=== PATIENT | female | born 1970 | race Caucasian/White ===

== ENCOUNTER → 2018-05-15 14:20 | Outpatient (CLI) | payer MEDICAID, SELFPAY ==
[2018-05-15 12:58] VITALS: BMI 38.1
== END ==
PROVIDERS: Family Provider Family Medicine; PCP Family Medicine; Visit Provider Nurse Practitioner Family
DX: J02.9 Acute pharyngitis, unspecified (principal)
CPT/HCPCS: 87081

== ENCOUNTER → 2018-05-25 14:12 | Outpatient (CLI) | payer MEDICAID, SELFPAY ==
[2018-05-25 11:57] VITALS: BMI 38.1
[2018-05-25 14:45] LABS: Bacteria 0 SEEN /hpf (None Seen); Mucous, Urine 0 SEEN /hpf (<or=2+); Red Blood Cells-Urine 0 SEEN /hpf (0-5); Squamous Epithelial Cells - UA 0 SEEN /hpf (5-10); White Blood Cells 0 SEEN /hpf (0-5)
[2018-05-25 15:02] LABS: Color, Urine Yellow (Yellow); Glucose, Dipstick Normal (Normal); Ketone-Dipstick Negative (Negative); Leukocyte Esterase-Dipstick Negative /ul (Negative); Nitrite-Dipstick Negative (Negative); Occult Blood-Urine Negative /ul (Negative); Protein-Dipstick Negative (Negative); Urine Bilirubin Dipstick Negative (Negative); Urine Clarity Clear (Clear); Urine Urobilinogen Normal (Normal)
--- OUTSIDE RECORDS SUMMARY | 2018-07-27 19:52 | XMS RPT_ITS ---
:1970 Author Organization [place] Support Name Relationship Address Phone HUGO MANNING Unavailable [address] + [place] [address] EDINSON MARTY Unavailable Unavailable + [place] [address] [facility] Unavailable [address] + [place] [address] HGUO MANNING Unavailable [address] + [place] [address] EDINSON MARTY Unavailable . + [place] [address] [facility] Unavailable [address] + [place] [address] HUGO MANNING Unavailable [address] + [place] [address] EDINSON MARTY Unavailable . + [place] [address] [facility] Unavailable [address] + [place] [address] HUGO MANNING Unavailable [address] + [place] [address] EDINSON, MARTY Unavailable . + [place] [address] [facility] Unavailable [address] + [place] [address] Hugo Manning Unavailable Unavailable + Hugo Manning Unavailable Unavailable + EDINSON HUGO Unavailable [address] + [place] [address] EDINSON, MARTY Unavailable . + [place] [address] [facility] Unavailable [address] + [place] [address] HUGO MANNING Unavailable [address] + [place] [address] MARTY MANNING Unavailable . + [place] [address] [facility] Unavailable [address] + [place] [address] Care Team Providers Name Role Phone Zoran Gonzalez Attending Unavailable PROVIDER, UNKNOWN Referring Unavailable [facility], [facility] Unavailable PROVIDER, UNKNOWN Attending Unavailable PROVIDER, UNKNOWN Referring Unavailable [facility], [facility] Unavailable Rosales, Hugo ORTHOPEDIC RN-C Attending Unavailable Ranney, Christopher Referring Unavailable Rosales, Hugo ORTHOPEDIC RN-C Attending Unavailable [place], [facility] Unavailable Juice, Ari Attending Unavailable Ranney, Christopher Referring Unavailable Juice, Ari Attending Unavailable Juice, Ari Referring Unavailable [place], [facility] Unavailable Prudencio Medina Attending Unavailable [facility], [facility] Referring Unavailable [place], [facility] Unavailable Rosales, Hugo ORTHOPEDIC RN-C Attending Unavailable [place], [facility] Referring Unavailable [place], [facility] Unavailable PROBLEMS PROBLEMS DATE TYPE CONDITION / CODE ATTENDING STATUS SOURCE 05/25/2018 Unknown M54.5 - Low back Ari Bose Active [facility] / Community M54.5(ICD-10) Hospital Repository 05/15/2018 Unknown J02.9 - Acute Rosales, Hugo Active [facility] pharyngitis, ORTHOPEDIC RN-C Community unspecified / Hospital J02.9(ICD-10) Repository 04/15/2018 Admitting Generalized anxiety Unknown Active [facility] disorder / System F41.1(ICD-10) Repository 04/15/2018 Admitting Encounter for issue Unknown Active [facility] Diagnosis of other medical System certificate / Repository Z02.79(ICD-10) 04/12/2018 Admitting Anxiety disorder, Lisa, Active [facility] Diagnosis unspecified / [facility] F41.9(ICD-10) Repository 04/12/2018 Admitting Problems in Lisa, Active [facility] Diagnosis relationship with [facility] spouse or partner / Repository Z63.0(ICD-10) 04/12/2018 Admitting Major depressive Lisa, Active [facility] Diagnosis disorder, single [facility] episode, Repository unspecified / F32.9(ICD-10) 04/12/2018 Admitting Personal history of Lisa, Active [facility] dis of the nervous [facility] sys and sense Repository organs / Z86.69(ICD-10) 04/12/2018 Admitting Nicotine Lisa, [facility], [facility] cigarettes, Repository uncomplicated / F17.210(ICD-10) 09/12/2017 Unknown K04.7 - Periapical Rosales, Hugo Active [facility] abscess without ORTHOPEDIC RN-C Community sinus / Hospital K04.7(ICD-10) Repository PROCEDURES PROCEDURES No Procedure Records FoundRESULTS RESULTS URINALYSIS, COMPLETE Collected: 05/25/2018 Status: F Source: [facility] 2:44 PM [facility] REPOSITORY Order Comment: How was Urine Obtained? CLEAN CATCH TYPE CODE TESTS RESULT OUT OF RANGE REFERENCE UNITS LAB L400.3000 Yellow COLOR Normal Yellow LAB L400.3050 Clear Normal CLARITY Clear LAB L400.3200 Normal mg/dl Normal GLUCOSE, UR Normal LAB L400.3300 Negative mg/dL Normal BILIRUBIN URINE Negative LAB L400.3400 Negative mg/dl Normal KETONE UR Negative LAB L400.3465 1.002-1.030 Normal SP.GR. DIPSTX 1.020 LAB L400.3550 5.0 - 8.0 pH UR Normal 5.0 LAB L400.3600 Negative mg/dl PROT Normal DIPSTX Negative LAB L400.3700 Normal mg/dl Normal UROBILI Normal LAB L400.3750 Negative Normal NITRITE UR Negative LAB L400.3780 Negative /ul Normal OCCULT BLOOD-UR Negative LAB L400.3800 Negative /ul LEUK Normal ESTERASE Negative LAB L400.4050 0-5 /hpf WBC 0 Normal SEEN LAB L400.4100 0-5 /hpf 0 Normal RBC-UA SEEN LAB L400.4150 5-10 /hpf SQUAM 0 Normal EPI SEEN LAB L400.4300 None Seen /hpf 0 Normal BACTERIA SEEN LAB L400.4350 <or=2+ /hpf 0 Normal MUCUS, URINE SEEN Performed By: #### L400.0001 #### [facility] [address] [place], [address] Observed: 05/25/2018 Status: F Source: [place] CULTURE, URINE 2:44 PM [facility] REPOSITORY Urine Culture Below infection level. ORGANISM 1: Mixed Gram Positive Organisms [place] Count <1000 MIX CULTURE Mixed contaminants. Submit a new specimen if indicated. Performed By: #### M100.0650 #### [facility] [address] [place], [address] URGENT CARE VISIT Observed: 05/25/2018 Status: F Source: [facility] REPORT 2:16 PM [facility] REPOSITORY [facility] [address] [place] [address] [address] [place] [address] OFFICE VISIT Date of Service: 05/25/18 MR#: [id number] Acct: [id number] Name: SAMANTA MANNING Rep #: [id number] : 1970 Provider: Ari KANG Age/Sex: 48/F Location: [facility] Status: Signed Intake Vital Signs05/25/18 Body Mass Index (BMI) 38.1 05/25/18 Height 5 ft 5 in Intake Visit Reasons: UTI, BACK PAIN/ COULD BE A STRAIN Allergies No Known Allergies Allergy (Verified 05/25/18 11:57) Medications loratadine-pseudoephedrine ER 10 mg-240 mg tablet,extended [id number] 1 tab PO QDAY PRN #30 tab 09/03/17 [Rx Confirmed 05/25/18] albuterol sulfate HFA 90 mcg/actuation aerosol inhaler 1 puff INHALATION Q6H PRN #8 g 05/15/18 [Rx Confirmed 05/25/18] cyclobenzaprine 5 mg tablet 5 mg PO TID PRN #30 tab 05/25/18 [Rx Confirmed 05/25/18] PFSH Medical History Arthritis (Acute) Back pain (Acute) Migraines (Acute) Social History Smoking Status: Current every day smoker alcohol intake: never HPI HPI Details: SAMANTA MANNING, is a 48 F who presents to the office today for complaint of low back pain. Patient is concerned she may have a UTI however states that the low back pain started after doing quite a shoveling 3 days ago. Patient states that the pain is made worse with bending or stooping. She denies any loss of bowel or bladder control. She has had no numbness or tingling in her extremities. She denies any previous back injuries or issues with back pain. She denies dysuria, hematuria or urinary urgency/frequency. No fever, chills, sweats. No nausea, vomiting or diarrhea. No other associated symptoms or alleviating/aggravating factors. ROS Const Constitutional: No chills, fever(s), fatigue or abnormal sleep pattern Resp Respiratory: No shortness of breath or chest congestion Cardio Cardiology: No chest pain at rest, chest pain with exertion or shortness of breath Skin Skin: No wounds or lesions Neuro Neurology: No behavioral changes or confusion Psych Psychiatric: No behavioral changes, No confusion, No abnormal sleep pattern Endo Endocrine: No fatigue Exam Const General: cooperative, healthy appearing Resp Effort AND Inspection: normal respiratory effort Auscultation: Bilateral: Clear to Auscultation Cardio Palpation: normal PMI Rate: regular rate Rhythm: regular rhythm Musc Musculoskeletal: Yes joint tenderness Cervical Spine: normal cervical lordosis and cervical ROM normal Thoracic/Lumbar Spine: straight leg raise negative bilaterally, thoraco-lumbar ROM normal Other: Multiple muscle spasms palpated bilaterally in the L4-5 region. No pain to palpation over the spine Skin General: no rashes or lesions noted Neuro General: alert, CN's II-XI intact bilaterally Gait: normal gait Motor: muscle tone normal throughout, strength 5/5 throughout Sensory Exam: no sensory deficits noted Psych Appearance: grossly normal Mental Status: mental status grossly normal Results [facility] Office Urine Color YELLOW Last Edit by Yany Stanley on 05/25/18 12:04 Office Urine Clarity Clear Last Edit by Yany Stanley on 05/25/18 12:04 Assessment AND Plan Problems 1. Strain of lumbar region, initial encounter S39.012A Status Acute Plan Cyclobenzaprine as prescribed today. Patient also advised to rest and use a heating pad for the next several days. Advised to use ibuprofen or Tylenol unless contraindicated as needed for pain. Patient advised of potential red flags and when appropriate to report to the ED. Patient verbalized understanding and agreement with all the above. Orders Orders: Medications New: Coding Level of Care Code Off vis,est,level 3 Diagnoses Strain of lumbar region, initial encounter S39.012A Encounter type: initial encounter 05/25/18 1416 <Electronically signed by Ari KANG> Date Ari Carrillo Signature: Date (if applicable) CC: URGENT CARE VISIT Observed: 05/15/2018 Status: F Source: [facility] REPORT 2:12 PM [facility] REPOSITORY [facility] [address] [place] [address] [address] [place] [address] OFFICE VISIT Date of Service: 05/15/18 MR#: [id number] Acct: [id number] Name: SAMANTA MANNING Rep #: [id number] : 1970 Provider: Hugo Rosales NP Age/Sex: 48/F Location: [facility] Status: Signed Intake Vital Signs05/15/18 Height 5 ft 5 in 05/15/18 Weight: 229 lb 05/15/18 Body Mass Index (BMI) 38.1 05/15/18 Blood Pressure 124/78 H Intake Visit Reasons: SORE THROAT Chief Complaint: SORE THROAT Forming Department End Finder Required: No Accompanied by: DAUGHTER Is patient in pain?: No Allergies No Known Allergies Allergy (Verified 05/15/18 12:59) Medications loratadine-pseudoephedrine ER 10 mg-240 mg tablet,extended [id number] 1 tab PO QDAY PRN #30 tab 09/03/17 [Rx Confirmed 09/12/17] albuterol sulfate HFA 90 mcg/actuation aerosol inhaler 1 puff INHALATION Q6H PRN #8 g 05/15/18 [Rx Confirmed 05/15/18] prednisone 20 mg tablet 40 mg PO QDAY #10 tab 05/15/18 [Rx Confirmed 05/15/18] PFSH Medical History Arthritis (Acute) Back pain (Acute) Migraines (Acute) Social History Smoking Status: Current every day smoker alcohol intake: never HPI HPI Chief Complaint: SORE THROAT Details: SAMANTA MANNING, is a 48 F who presents to the office today for an acute visit for sore throat. Patient has a past medical history as listed above. Patient presents in office today with sore throat. Patient states this started to get worse the last 3 days and complains of pain when swallowing on both sides of throat. Patient states has not taken anything for the pain or symptoms. Patient was seen on Apr 29 at PCP office for sinus pressure and cough. She was prescribed a ZPack which alleviated some sinus pressure but she states she still has a lingering dry cough as well. She is having postnasal drainage today along with the cough and a frontal headache. Patient denies any other aggravating or alleviating factors. Kieran's daughter was seen in office last week with positive strep culture as well. The patient otherwise denies any fever, chills, nausea, vomiting, shortness of breath, chest pain or pressure, palpitations, orthopnea, lower extremity edema, syncope or presyncopal episodes. ROS Const Constitutional: Positive for headache(s); no fever(s), chills, weakness, change in appetite, sleep problems, fatigue, malaise or frequent falls ENT ENT: Positive for sinus pressure, sore throat and headache(s); no abnormal hearing, ear pain, ear pressure or dizziness/vertigo Resp Respiratory: Positive for cough; no wheezing or shortness of breath Cardio Cardiology: No chest pain at rest, chest pain with exertion, shortness of breath, dyspnea on exertion, lightheadedness, irregular heart rhythm, fast heart rate, palpitations, orthopnea or generalized swelling Gastro GI: No abdominal pain, change in bowel habits, constipation, diarrhea, vomiting or nausea/dyspepsia Skin Skin: No change in skin color, wounds, rash or itching Neuro Neurology: Positive for headache(s); no weakness, frequent falls or abnormal hearing Psych Psychiatric: No change in appetite Endo Endocrine: No fatigue Aller/Imm Allergy/Immunologic: No wheezing or itchy eyes Exam Const General: cooperative, comfortable, no acute distress Nutritional Appearance: average body habitus, well nourished Orientation: alert, oriented x3 Limitations: mental status not altered [facility] Head: normal to inspection Ears: hearing grossly normal bilaterally, TM's normal bilaterally Nose: external nose normal Face and sinus: normal facial exam, sinus tenderness Mouth: oral mucosae normal Throat: posterior oropharynx abnormal erythema Neck Neck: no lymphadenopathy, normal visual inspection Chest Chest palpation AND inspection: normal inspection of the chest Resp Effort AND Inspection: normal respiratory effort, able to speak in complete sentences, normal respiratory pattern, symmetric chest movement, no audible wheezes, no cough Auscultation: Bilateral: Clear to Auscultation Cardio Palpation: normal PMI Rate: regular rate Heart Sounds: S1 normal, S2 normal, normal S1 and S2, no click, no gallops, no murmurs, no rubs Skin General: no rashes or lesions noted, elasticity normal, turgor normal Lesions: no lesions Rashes: no rashes Neuro General: alert, awake, oriented x3, CN's II-XI intact bilaterally Speech: speech normal Gait: normal gait Motor: muscle tone normal throughout Results BMSRAPIDSTREAK Office Rapid Strep A Negative Last Edit by Klairssa Kuo on 05/15/18 13:04 Assessment AND Plan Problems 1. Acute pharyngitis, unspecified etiology J02.9 2. COPD exacerbation J44.1 Plan Based on patient's presenting symptoms history and assessment diagnosis of acute pharyngitis due to rapid strep negative. Will plan on sending strep and strep culture and following up pending results. Supportive therapy instructed for acute pharyngitis including Tylenol OTC for pain, increasing fluids and rest. Diagnosis of COPD exacerbation given to due to lingering cough not resolved with antibiotics since April 29 and the fact that a chest x-ray was done in 2016 that showed probable COPD and the patient's [id number] smoking. Treatment today will be prednisone burst therapy and albuterol for symptom management. Patient instructed on all medications and verbalizes under standing. Plan will be for patient to follow-up with primary care provider if any new or worsening symptoms. She does note that she has a routine follow-up next week with her PCP. Dragon disc Orders Orders: Medications New: albuterol sulfate HFA 90 mcg/actuation (Vento1 puff Inhalation Q6H PRN 8 grams 0RF wheezi brandy HFA) ng, shortness of breath, cough Coding Level of Care Code Off vis,est,level 3 Diagnoses Acute pharyngitis, unspecified etiology J02.9 Pharyngitis/tonsillitis etiology: unspecified etiology COPD exacerbation J44.1 05/15/18 1412 <Electronically signed by Hugo HENNESSY> Date Hugo Rosales NP-Rosaura Carrillo Signature: Date (if applicable) CC: Observed: 05/15/2018 Status: F Source: [facility] CULTURE, R/O STREP A 12:00 AM [facility] REPOSITORY [facility]ORIE Culture No Group A Beta Streptococcus isolated. * This cultures intended use is to screen for Beta Streptococcus A only. All other pathogens and potential pathogens will not be screened for or reported. If a complete workup of all potential pathogens is indicated an order for a routine throat culture is required. Performed By: #### M100.010 #### [facility] [address] [place], [address] INTERNAL MEDICINE Observed: 09/12/2017 Status: F Source: [facility] OFFICE VISIT 8:30 AM [facility] REPOSITORY [facility] [address] [place] [address] [place] [address] OFFICE VISIT Date of Service: 09/12/17 MR#: [id number] Acct: [id number] Name: EDINSONSAMANTA J Rep #: [id number] : 1970 Provider: Hugo Rosales NP Age/Sex: 47/F Location: [facility] Status: Signed Intake Vital Signs09/12/17 Height 5 ft 5 in Intake Visit Reasons: absessed tooth Chief Complaint: tooth abcess Is patient in pain?: No Allergies No Known Allergies Allergy (Verified 09/12/17 08:12) Medications loratadine-pseudoephedrine ER 10 mg-240 mg tablet,extended [id number] 1 tab PO QDAY PRN #30 tab 09/03/17 [Rx Confirmed 09/12/17] amoxicillin 875 mg-potassium clavulanate 125 mg tablet 1 tab PO BID #14 tab 09/12/17 [Rx Confirmed 09/12/17] PFSH Medical History Arthritis (Acute) Back pain (Acute) Migraines (Acute) Social History Smoking Status: Current every day smoker alcohol intake: never HPI HPI Chief Complaint: tooth abcess Details: SAMANTA MANNING, is a 47 F who presents to the office today for an acute complaint of possible tooth abscess. She has a past medical history of recurrent sinus infection. The patient states she has been recently getting over a cold and that she was flossing her teeth last night and noted a small tender pocket of yellow fluid underneath her bottom teeth. She states it is slightly tender and that this occurred on the same tooth where she previously had a root canal done. She denies any systemic signs of infection. She does state she will be seeing the dentist Thursday but to be seen sooner than that. She denies any allergies or recent antibiotic use. She denies any other aggravating or relieving factors. The patient otherwise denies any fever, chills, nausea, vomiting, shortness of breath, chest pain or pressure, palpitations, orthopnea, lower extremity edema, syncope or presyncopal episodes. ROS Const Constitutional: No fever(s), chills, weakness, change in appetite, sleep problems, fatigue, malaise or frequent falls Eyes Eyes: No blurry vision, change in vision, double vision or discharge ENT ENT: Positive for other (Tooth abscess see HPI); no abnormal hearing, ear pain, ear pressure or dizziness/vertigo Resp Respiratory: No cough, wheezing or shortness of breath Cardio Cardiology: No chest pain at rest, chest pain with exertion, shortness of breath, dyspnea on exertion, lightheadedness, irregular heart rhythm, fast heart rate, palpitations, orthopnea or generalized swelling Gastro GI: No abdominal pain, change in bowel habits, constipation, diarrhea, vomiting or nausea/dyspepsia Musc Musculoskeletal: No joint pain, back pain, limited range of motion, joint swelling, muscle weakness, tingling or numbness Skin Skin: No change in skin color, wounds, rash or itching Neuro Neurology: No weakness, frequent falls, abnormal hearing, tingling, numbness, unsteady gait/balance, dizziness, loss of vision or memory loss Psych Psychiatric: No change in appetite, No memory loss, No anxiety, No depression, No Thoughts of harming yourself/Others Endo Endocrine: Positive for other (Tooth abscess see HPI); no fatigue, increased thirst/drinking, increased urination, increased hunger or heat intolerance Aller/Imm Allergy/Immunologic: No wheezing, itchy eyes or seasonal allergy symptoms Aris/Lymp Hematologic/Lymphatic: No easy bleeding, easy bruising or enlarged lymph nodes Exam Const General: cooperative, comfortable, no acute distress Nutritional Appearance: average body habitus, well nourished Orientation: alert, oriented x3 Limitations: mental status not altered HENMT Head: normal to inspection Ears: hearing grossly normal bilaterally Nose: external nose normal Face and sinus: normal facial exam Mouth: oral mucosae normal Teeth and gingiva: abnormal tooth or associated gingiva lower left central incisor: tender and other (Small yellow fluid-filled pocket needs lower central incisor), poor dentition Throat: posterior oropharynx normal Neck Neck: no lymphadenopathy noted Resp Effort AND Inspection: normal respiratory effort, able to speak in complete sentences, normal respiratory pattern, symmetric chest movement, no audible wheezes, no cough Auscultation: Bilateral: Clear to Auscultation Cardio Palpation: normal PMI Rate: regular rate Heart Sounds: S1 normal, S2 normal, normal S1 and S2, no click, no gallops, no murmurs, no rubs Musc Musculoskeletal: No muscle weakness Psych Appearance: grossly normal Mental Status: mental status grossly normal Affect: normal affect Attitude: cooperative Thought Process: normal Assessment AND Plan 1. Tooth abscess K04.7 Plan Based on physical exam, the patient does have a small tooth abscess on her lower central incisor. Will treat empirically with Augmentin twice daily 7 days and instructed to follow-up with her dentist on Thursday. Discussed red flag symptoms that require urgent medical attention. Discussed supportive symptoms such as taking xlqa-mml-ysgbwfy analgesics for pain as well. Patient to follow-up with dentist on Thursday or seek medical attention sooner if any red flag symptoms occur. Arlene disclaimer. Plan Detail Other Medications New: Coding Level of Care Code Off vis,est,level 3 Diagnoses Tooth abscess K04.7 09/12/17 0830 <Electronically signed by Hugo HENNESSY> Date Hugo HENNESSY Cosigner Signature: Date (if applicable) CC: URGENT CARE VISIT Observed: 09/03/2017 Status: F Source: [facility] REPORT 5:30 PM [facility] [address] [place] [address] [address] [place] [address] OFFICE VISIT Date of Service: 09/03/17 MR#: [id number] Acct: [id number] Name: SAMANTA MANNING Rep #: [id number] : 1970 Provider: Prudencio KANG Age/Sex: 47/F Location: [facility] Status: Signed Intake Vital Signs09/03/17 Height 5 ft 5 in 09/03/17 Weight: 229 lb 09/03/17 Body Mass Index (BMI) 38.1 09/03/17 Blood Pressure 132/86 Intake Visit Reasons: COUGH,DRAINAGE Chief Complaint: Nasal congestion Forming Department End Finder Required: No Is patient in pain?: No Allergies No Known Allergies Allergy (Verified 09/03/17 16:46) Medications loratadine-pseudoephedrine ER 10 mg-240 mg tablet,extended [id number] 1 tab PO QDAY PRN #30 tab 09/03/17 [Rx Confirmed 09/03/17] PFSH Medical History Arthritis (Acute) Back pain (Acute) Migraines (Acute) Social History Smoking Status: Current every day smoker alcohol intake: never HPI HPI Chief Complaint: Nasal congestion Details: SAMANTA MANNING, is a 47 F who presents to the office today for initial evaluation 2 day history of sneezing, rhinorrhea, occasional chills. Patient notes no complaints of fever, sweats, rash, chest pain/shortness of breath, or cough. She admits to being a tobacco smoker. She notes no other members in her household with similar signs or symptoms. She has tried no botf-wyg-mpakznt products to assist with her symptoms. She notes no other associated symptoms and no other alleviating or aggravating factors. ROS Const Constitutional: Positive for chills; no excessive sweating, fever(s), night sweats, body ache or headache(s) Eyes Eyes: No change in vision ENT ENT: Positive for post nasal drip, sinus pressure and nasal congestion; no ear pain, ear discharge, ear pressure, hearing loss, sore throat or headache(s) Resp Respiratory: No cough, chest congestion or shortness of breath Cardio Cardiology: No excessive sweating, chest pain at rest, chest pain with exertion, shortness of breath, dyspnea on exertion, irregular heart rhythm, generalized swelling or leg pain with exertion Gastro GI: No abdominal pain, change in stool character or change in bowel habits Musc Musculoskeletal: No joint pain, back pain, limited range of motion, tingling or numbness Skin Skin: No rash Neuro Neurology: No tingling, numbness, headache(s) or dizziness Endo Endocrine: No excessive sweating Exam Const General: cooperative, healthy appearing, no acute distress, comfortable Nutritional Appearance: average body habitus Orientation: alert, awake, oriented x3 HENMT Head: normal to inspection Ears: hearing grossly normal bilaterally, external ears normal, TM's normal bilaterally, EAC's normal Nose: external nose normal, nares normal, septum normal, nasal discharge clear Face and sinus: normal facial exam, sinuses nontender, face symmetric Mouth: oral mucosae normal, lip normal, tongue normal, oropharynx normal Teeth and gingiva: gingiva normal, dentition normal Throat: uvula midline, tonsils normal, posterior oropharynx normal, no postnasal drainage Eyes General: appearance normal, both eyes and all related structures Neck Neck: normal visual inspection, full ROM, no lymphadenopathy, no meningeal signs, supple Neck mass: No Thyroid: thyroid normal Lymphatic: no lymphadenopathy noted Chest Chest palpation AND inspection: normal inspection of the chest Resp Effort AND Inspection: normal respiratory effort, able to speak in complete sentences, symmetric chest movement, no cough Auscultation: Bilateral: Clear to Auscultation Cardio Palpation: normal PMI Rate: regular rate Rhythm: regular rhythm Heart Sounds: S1 normal, S2 normal, no gallops, no murmurs, no rubs Pulses: radial pulses present GI Inspection: normal to inspection Palpation: soft Skin General: no rashes or lesions noted Assessment AND Plan Problems 1. URI (upper respiratory infection) J06.9 Plan Claritin-D as prescribed today. Clear fluids, rest, and he will/Tylenol as needed for symptomatic relief. Avoid tobacco smoke exposure. Follow-up with PCP in 7-10 days should symptoms not improved, sooner should symptoms worsen or any other concerns develop. This note was generated with [employer] software. It may contain incorrect words, spelling, and punctuation that were not noted in checking the note before signing. Medications New: Coding Level of Care Code Off vis,est,level 3 Diagnoses URI (upper respiratory infection) J06.9 09/03/17 1730 <Electronically signed by Prudencio KANG> Date Prudencio KANG Cosigner Signature: Date (if applicable) CC: ALLERGIES ALLERGIES DATE TYPE / CODE NAME / CODE REACTION SEVERITY SOURCE 05/25/2018 Drug No Known Unknown [facility] Allergy/4160 Allergies/F00 [facility] 47987(SNOMED [id number](RXNOR Repository CT) M) ENCOUNTERS ENCOUNTERS ADMIT/DISCHARGE ACCOUNT NUMBER ADMITTING ENCOUNTER LOCATION SOURCE CLASS 05/25/2018 [id number] Ambulatory [facility] ding:LABSPEC Repository 05/25/2018/05/25/19 [id number] Ambulatory BMSBuilding: [place] [facility] BMS.[facility] Repository 05/15/2018 [id number] Ambulatory [facility] ding:LABSPEC Repository 05/15/2018/05/15/19 [id number] Ambulatory BMSBuilding: [place] [facility] BMS.[facility] Repository 04/15/2018 [id number] Emergency [facility] EDRoom: System [id number]: Repository [id number] 04/12/2018 [id number] Emergency [facility] EDRoom: System [id number]: Repository [id number] 09/12/2017/09/13/19 [id number] Ambulatory BMSBuilding: [place] [address] BMS.[facility] Repository 09/03/2017/09/04/19 [id number] Ambulatory BMSBuilding: [place] [facility] Repository PAYERS PAYERS ENCOUNTER GUARANTOR PAYER SUBSCRIBER SOURCE 05/25/2018 HUGO [id number] Primary SAMANTA J [place] Insurance:CHACHA RODRIGUEZ: [facility] [id number] Hospital [address]94[address]Xxf: (330) PLANPolicy Number: Repository [phone] () [id number] Date:0786-62-78YJ [address] [place] [address] 32697MN: 05/25/2018 Secondary NOT GIVENUNK [place] Insurance:SELF PAY [facility] Number: Effective Repository Date:2018-05-25 05/25/2018 Hugo Manning189 Primary SAMANTA J [place] Insurance:CHACHA LERMAOB: [facility] [id number] Hospital [address]Tqb: (330) PLANPolicy Number: Repository [phone] () [id number] Date:0102-52-45NR [address] [place] [address] 28879EL: 05/25/2018 Secondary NOT GIVENUNK [place] Insurance:SELF PAY [facility] Number: Effective Repository Date:2018-05-25 05/15/2018 Hugo Manning189 Primary SAMANTA J [place] Insurance:CHACHA RODRIGUEZ: [facility] [id number] Hospital 27[address]Nam: (330) PLANPolicy Number: Repository [phone] () [id number] Date:9668-82-95CC [address] [place] [address] 70405SJ: 05/15/2018 Secondary NOT GIVENUNK [place] Insurance:SELF PAY [facility] Number: Effective Repository Date:2018-05-15 05/15/2018 Hugo Manning189 Primary SAMANTA J [place] Insurance:CHACHA RODRIGUEZ: [facility] [id number] Hospital [address]Wps: (330) PLANPolicy Number: Repository [phone] () [id number] Date:7689-54-13AT [address] [place] [address] 39951ZH: 05/15/2018 Secondary NOT GIVENUNK [place] Insurance:SELF PAY [facility] Number: Effective Repository Date:2018-05-15 04/15/2018 Samanta J Primary Samanta Ramachandran Fora BachmanDOB: [facility] System cy Number: Effective [id number] Repository Guido Date: [place], [place] [address]Lnj: (HP) 04/12/2018 Samanta J Primary Samanta Ramachandran Fora BachmanDOB: Insurance:[facility] System cy Number: Effective [id number] Repository Guido Date: [place], [place] [address]Tvn: () 09/12/2017 Hugo Manning189 Primary Insurance:[facility] SAMANTA Bateman [facility]: [facility] [id number] Hospital [address]Dcz: (330) Number: Repository [phone] () [id number] Date:5253-70-30NB [address], [place] [address]GN: CHECK WEBSITE 09/12/2017 Secondary SAMANTA J [place] [facility] [id number] Number: Repository [id number] Date:4918-95-57WD [address] [place] [address] 70791CC: 09/12/2017 Tertiary NOT GIVENUNK [place] Insurance:SELF PAY [facility] Number: Effective Repository Date:2017-09-12 09/03/2017 Hugo Manning189 Primary Insurance:[facility] SAMANTA Bateman [facility]: [facility] [id number] Hospital [address]Oib: (330) Number: Repository [phone] () [id number] Date:8098-41-66VG [address] [address], [place] [address]BT: CHECK WEBSITE 09/03/2017 Secondary SAMANTA J [place] Insurance:CHACHA LERMAOB: [facility] [id number] [facility] PLANPolicy Number: Repository [id number] Date:4630-07-67Y[address] [address]VL: 09/03/2017 Tertiary NOT GIVENNNAMDI [place] Insurance:SELF PAY [facility] Number: Effective Repository Date:2017-09-03
== END ==
PROVIDERS: Family Provider Family Medicine; PCP Family Medicine; Referring Provider Physician Assistant Surgical; Visit Provider Physician Assistant Surgical
DX: M54.5 Low back pain (principal)
CPT/HCPCS: 81001; 87086; 87088